=== PATIENT | male | born 1955 | race Caucasian/White ===

== ENCOUNTER → 2016-12-03 | Outpatient (CLI) | payer OTHER ==
--- NOTE | 2016-12-03 10:24 | CT ---
CT Scan of the Chest (Without Contrast) Clinical Indications: History of prior tobacco use. History of emphysema. Follow up pulmonary nodule s. Comparison: February 08, 2016, February 23, 2014. Technique: Multidetector helical CT was performed from the superior thoracic inlet to the diaphragm. No intravenous contrast was given. The radiologist manipulated images at the computer workstation. Dose reduction techniques were utilized. Findings: There is some new patchy upper lobar vague nodular versus groundglass opacity that is new c ompared to prior examination. The nodule in the left upper lobe series 4 image 34 is stable and has b een present since 2013. The second nodule which was first seen in January 2016 has shrunken significant ly from 5 mm to 2 mm seen today on series 4 image 48. Previous areas of nodularity have resolved. The bones are unremarkable. There is no significant mediastinal or axillary adenopathy. Aorta and pulmon umer vasculature are stable. Mild to moderate coronary artery calcification is noted. Limited examinat ion of the upper abdomen shows fatty infiltration of the liver. Impression: 1. The new left upper lobe nodule has shrunk significantly suggesting it was infectious or inflammato ry and the second left upper lobe nodule remains stable to slightly smaller. 2. Areas of waxing and waning patchy nodularity possibly related to bronchiolitis obliterans, airways disease, or chronic granulomatous disease. Consider follow up in one year.
== END ==
LOC: CIMAGING 09:07
PROVIDERS: ATTEND Internal Medicine Critical Care Medicine
DX: R91.8 Other nonspecific abnormal finding of lung field (principal)
CPT/HCPCS: 71250-PO

== ENCOUNTER → 2017-02-03 | Outpatient (CLI) | payer OTHER | LOC: CIMAGING 10:31 | PROVIDERS: ATTEND Internal Medicine Critical Care Medicine | DX: J40 Bronchitis, not specified as acute or chronic (principal) | CPT/HCPCS: 71020-PO ==

== ENCOUNTER → 2017-02-15 | Outpatient (CLI) | payer OTHER | LOC: CIMAGING 09:55 | PROVIDERS: ATTEND Internal Medicine Critical Care Medicine | DX: Z09 Encounter for follow-up examination after completed treatment for conditions other than malignant neoplasm (principal); Z87.09 Personal history of other diseases of the respiratory system | CPT/HCPCS: 71020-PO ==

== ENCOUNTER → 2017-06-25 | Outpatient (CLI) | payer OTHER | LOC: CIMAGING 15:27 | PROVIDERS: ATTEND Family Medicine | DX: Z01.811 Encounter for preprocedural respiratory examination (principal); J44.9 Chronic obstructive pulmonary disease, unspecified | CPT/HCPCS: 71020-PO ==

== ENCOUNTER → 2019-02-10 | Outpatient (CLI) | payer OTHER | LOC: CIMAGING 12:36 | PROVIDERS: ATTEND Internal Medicine Critical Care Medicine | DX: J84.115 Respiratory bronchiolitis interstitial lung disease (principal); J44.9 Chronic obstructive pulmonary disease, unspecified; I27.21 Secondary pulmonary arterial hypertension | CPT/HCPCS: 71046-PO ==